=== PATIENT | female | born 1995 | race Two or more races ===

== ENCOUNTER → 2023-06-19 | Emergency (ER) | payer BC ==
[~2023-06-19] VITALS: Ht 170.2 cm; Wt 72.6 kg
[~2023-06-19] MED LIST: LEVOTHYROXINE25 MCG PO
== END | disposition left against medical advice (07) ==
LOC: ER 15:48
DX: S90.819A Abrasion, unspecified foot, initial encounter (principal); W64.XXXA Exposure to other animate mechanical forces, initial encounter; Y93.89 Activity, other specified; Y92.838 Other recreation area as the place of occurrence of the external cause; Y99.8 Other external cause status; Z77.21 Contact with and (suspected) exposure to potentially hazardous body fluids